=== PATIENT | female | born 1995 | race Caucasian/White ===

== ENCOUNTER 2024-10-26 13:37 | Emergency (ER) | payer OTHER, SELFPAY ==
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
--- OUTSIDE RECORDS SUMMARY | 2024-10-26 13:45 | XMS_ITS | Clinical Summary ---
Author Organization [facility] Address [address] [place] [address] Phone Care Team Providers Care Powder Compounder Name Role Phone Provider, Unknown Primary Care Provider Unavaila ble Social History Tobacco Use Types Packs/Day Years Used Date Smoking Tobacco: Never Assessed Comments Unknown Sex and Gender Information Value Date Recorded Sex Assigned at Not on file Legal Sex Female 3:16 PM CDT Gender Identity Not on file Sexual Orientation Not on file Plan of Treatment Not on file Insurance [place]ICAID [place] Care Teams Powder Compounder Relationship Specialty Start Date End Date Provider, Unknown UNKNOWN PCP - General 10/23/16
[2024-10-26 14:18] VITALS: BP 114/77; PULSE 69; RESP 15; TEMP 36.6; O2SAT 99
[2024-10-26 17:08] VITALS: BP 112/80; PULSE 65; RESP 16; TEMP 36.6; O2SAT 99
--- OUTSIDE RECORDS SUMMARY | 2024-10-26 17:40 | XMS_ITS | Clinical Summary ---
Author Organization [facility] Address [address] [place] [address] Phone Care Team Providers Care Construction Trades Teacher Name Role Phone Provider, Unknown Primary Care [...] on file Insurance [place] Care Teams Construction Trades Teacher Relationship Specialty Start Date End Date Provider, Unknown UNKNOWN PCP - General 10/23/16
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
[2024-10-26] MEDS: ACETAMINOPHEN 500 MG TABLET 1000 MG PO (18:05)
[2024-10-26 18:19] LABS: BEDSIDEPREGUCG Negative (Negative)
[2024-10-26 18:22] LABS: Hematocrit 42.9 % (37.0-47.0); Hemoglobin 14.0 g/dL (12.0-15.0); Immature Granulocyte Percent A 0.2 % (0-0.5); Lymphocytes Absolute Auto 3.10 K/mm3 (0.9-3.2); Mean Corpuscular HGB Conc 32.6 g/dl (32-36); Mean Corpuscular Hemoglobin 31.0 pg (26-34); Mean Corpuscular Volume 95.1 fl (80-100); Nucleated Red Blood Cells Absolute Auto 0.000 K/mm3 (0.0-0.012); Nucleated Red Blood Cells Perc 0.0 % (0.0-0.2); Platelet Count Result 305 k/mm3 (150-375); Red Blood Count 4.51 M/mm3 (4.2-5.4); White Blood Count 9.2 K/mm3 (4.5-10.0)
[2024-10-26 18:32] LABS: Alanine Aminotransferase 19 U/L (6-35); Albumin Level 4.8 g/dL (3.5-5.1); Alkaline Phosphatase 67 U/L (38-126); Anion Gap 11 mmol/L (4-12); Aspartate Amino Transferase 38 U/L (14-36); Bilirubin,Total 0.5 mg/dL (0.2-1.3); Blood Urea Nitrogen 15 mg/dL (7-17); Calcium 9.3 mg/dL (8.4-10.2); Carbon Dioxide 23 mmol/L (22-30); Chloride 103 mmol/L (98-107); Estimated CRCL calculation 88 ml/min; Estimated Glomerular Filt Rate > 60; Glucose 89 mg/dL (65-110); Lipase 61 U/L (23-300); Potassium 4.1 mmol/L (3.4-5.0); Sodium 137 mmol/L (137-145); Total Protein 9.1 g/dL (6.3-8.2)
[2024-10-26 18:33] LABS: INR 1.0; Prothrombin Time 12.9 Seconds (11.1-14.7)
[2024-10-26 18:34] LABS: Partial Thromboplastin Time 28.8 Seconds (22.3-36.8)
[2024-10-26 21:17] VITALS: BP 120/79; PULSE 73; RESP 17; O2SAT 100
== END 2024-10-26 21:19 | disposition home or self-care (01) ==
PROVIDERS: Emergency Provider Physician Assistant
DX: S39.012A Strain of muscle, fascia and tendon of lower back, initial encounter (principal); S16.1XXA Strain of muscle, fascia and tendon at neck level, initial encounter; S79.911A Unspecified injury of right hip, initial encounter; S99.911A Unspecified injury of right ankle, initial encounter; V43.52XA Car driver injured in collision with other type car in traffic accident, initial encounter
CPT/HCPCS: 36415; 72125; 72132; 73502; 73610; 74177; 80053; 81025; 83690; 85025; 85610; 85730; 99284; A9270; Q9967